=== PATIENT | female | born 1950 | race Caucasian/White ===

== ENCOUNTER 2025-08-25 12:05 | Outpatient (CLI) | payer MEDICARE, SELFPAY ==
[2025-08-25 12:32] VITALS: BP 141/86; PULSE 86; RESP 18; O2SAT 97
--- NOTE | 2025-08-25 13:35 | PM.PROC ---
Procedure Note Time Seen by Provider: 13:00 Date Seen: 08/25/25 Provider Contact Time: 13:45 Date of procedure: 08/25/25 Will [facility] bill your pro fee for this procedure?: Yes Procedure: CRYONEUROLYSIS TREATMENT REPORT REFERRING PROVIDER: Kishan Orozco TREATMENT PROVIDER: Myron Salcedo PREOPERATIVE DIAGNOSIS: Left knee osteoarthritis POSTOPERATIVE DIAGNOSIS: Left knee osteoarthritis? PROCEDURE: Cryoneurolysis of Multiple Sensory Nerves of the Knee ANESTHESIA: Local INDICATIONS: The patient is a very pleasant 74-year-old female patient with primary osteoarthritis involving the left knee who presents today for cryoneurolysis of multiple sensory nerves to the knee for severe knee pain.?Patient medical history was reviewed. The risks, benefits, treatment alternatives, and complications were discussed with the patient, including but not limited to bleeding, infection, nerve or tissue damage.?Informed consent was obtained. ? PRE-TREATMENT MOTOR ASSESSMENT/PAIN SCORE: Patient was able to demonstrate intact gross motor function with plantarflexion, dorsiflexion, adduction, abduction, hip flexion, and extension of the lower extremity.?Pre-treatment pain score of 0 out of 10 in the left knee. DESCRIPTION OF PROCEDURE: After obtaining informed consent, the patient was brought back to the treatment room and positioned supine on the table.?The left lower extremity was prepped with Chlorhexadine.?We began the procedure by performing our procedural pause.?Once this was completed and verified to be accurate, I began the procedure by identifying the nerves with the use of bedside ultrasound.?After the nerves were identified, the skin was marked and, using 1% lidocaine plain, the area of the nerves were anesthetized. ? After the anesthetic was administered, the Smart Tip 2190 cryoneurolysis needle was inserted into the treatment sites using ultrasound guidance.?Treatment was then initiated on the left lower extremity with the following nerves treated: Superior, superior medial, superior lateral, inferior medial genicular nerves and the infrapatellar branch of the saphenous nerve. At the termination of the treatment, the cryoneurolysis needle was removed with the patient's skin cleansed and Band-Aids and compression dressing applied. Patient tolerated the procedure without any incident or concern.? Patient was then instructed to stand, mobilize the joint, and was examined to ensure gross motor skills were intact. COMPLICATIONS: None POST-TREATMENT PAIN SCORE: 0 out of 10. Left knee DISPOSITION: Discharge instructions were given to the patient with education on the post-procedure expectations. Patient was instructed to call the Ortho clinic with any post-procedure concerns or questions.
== END 2025-08-25 13:42 | disposition home or self-care (01) ==
LOC: OP CLINIC 12:05
PROVIDERS: PCP Family Medicine; Visit Provider Nurse Anesthetist, Certified Registered
DX: M17.12 Unilateral primary osteoarthritis, left knee (principal)
CPT/HCPCS: 64640; 76942; C9809

== ENCOUNTER 2025-09-08 10:02 | Day surgery (SDC) | payer MEDICARE, SELFPAY ==
[2025-09-08] VITALS (22 sets, daily range): BP systolic 95–167; BP diastolic 56–87; PULSE 58–100; RESP 15–20; TEMP 35.3–36.9; O2SAT 90–98; BMI 36.9
[2025-09-08] MEDS: LACTATED RINGERS 1000 ML 1,000 ML 100 ML IV ×3 (10:40→16:11)
[2025-09-08] MEDS: SODIUM CHLORIDE 0.9 % (FLUSH) 10 ML SYRINGE IVF (10:41)
[2025-09-08] MEDS: ACETAMINOPHEN 500 MG TABLET 1000 MG PO ×2 (10:42→18:34)
[2025-09-08] MEDS: OXYCODONE (CR) 10 MG TAB.ER.12H PO (10:42)
--- NOTE | 2025-09-08 11:42 | W.PM.H&PU ---
History & Physical Update History & Physical Update H&P Reviewed and patient assessed: No changes noted
[2025-09-08] MEDS: MIDAZOLAM HCL 1 MG/ML inj IVP (12:14)
--- NOTE | 2025-09-08 12:26 | SUR.PREOP ---
TIME?OUT:?1214 PT/RN/MDA?VERIFICATION?OF?SURGICAL?SITE,?PROCEDURE,?AND?CONSENT OBTAINED?PRIOR?TO?INVASIVE?PROCEDURE.
[2025-09-08] MEDS: TRANEXAMIC ACID 100 MG/ML INJ 1000 MG IV (13:33)
--- NOTE | 2025-09-08 15:28 | P.ORPRC_ITS ---
Procedure Note Date of procedure: 09/08/25 Procedure: PREOPERATIVE DIAGNOSIS: 1. Left knee osteoarthritis, primary, severe POSTOPERATIVE DIAGNOSIS: 1. Left knee osteoarthritis, primary, severe PROCEDURE: 1. Left total knee arthroplasty - subvastus SURGEON: Kishan Orozco MD. DIE INSPECTOR: FARHAT Varela - Of note, a skilled sugar laboratory assistant was critical for this case to aid in patient positioning, tissue retraction, limb manipulation/positioning, and closure. ANESTHESIA: Spinal anesthetic EBL: 100 ml IMPLANTS: DePuy J&J all cemented TKA - Attune PS femur size 7 Size 5 tibia 10 mm poly spacer 38 mm patella TOURNIQUET: 30 minutes at 250 torr COMPLICATIONS: None evident INDICATIONS: The patient is a pleasant 74-year-old female who has experienced severe left knee pain and difficulty bearing weight. Workup included x-rays which revealed severe osteoarthrosis in the knee. Given the deformity, the dysfunction, and the pain, as well as the failure of nonoperative management, recommendation was made for surgery. FINDINGS: Full-thickness chondral loss diffusely throughout all 3 compartments of the knee. Significantly large osteophytosis diffusely throughout the knee all 3 compartments. Loose bodies in the posterior central part of the knee. Popliteal cyst encountered. Large effusion upon entering the joint. Virtually no trochlear sulcus/trochlear groove nor notch. The PCL was essentially hidden behind osteophyte. DESCRIPTION OF PROCEDURE: Following a thorough discussion of risks, benefits, and alternatives consent was obtained and the left knee was marked. The patient was brought to the operating room and placed supine on the operating table. Induction of anesthesia was undertaken. 2 g IV Ancef and 1 g tranexamic acid was administered within 1 hr of incision preoperatively. Proper time-out was performed identifying proper patient, site, procedure. The operative extremity was prepped and draped in the appropriate sterile fashion using ChloraPrep after the patient was positioned supine with all bony prominences well padded. A longitudinal, anterior, midline skin incision was made starting approximately 3cm proximal to the superior pole of the patella and advanced distal to the tibial tubercle. A subvastus approach was utilized. A medial subperiosteal sleeve was created with knife, veliz elevator and curved osteotome. The retropatellar fatpad was resected and the synovium in the suprapatellar pouch excised to visualize the anterior femoral cortex. Femoral preparation was performed via an intramedullary guide. Step drill allowed access into the femoral canal. The distal cutting guide was placed with 5? of valgus and 12 mm cut on the distal femur due to a 20?+ flexion contracture. Femur was sized using a posterior referencing guide in 3? of external rotation after cross referencing with trans-epicondylar axis and Marshall's line. This found have a best fit with the sizing noted above. The 4 in 1 cutting block was then placed, and the distal femur shaped accordingly. The box cut was then created and the trial implant inserted to confirm appropriate fit. We turned our attention to the proximal tibia. Extramedullary guide was utilized for cutting with the goal of being 90 degree cut from the mechanical axis of the tibia in the varus/valgus plane utilizing tibial crest as the primary alignment. Initially a 1 mm resection was performed from the medial tibial plateau. Ultimately, balancing was achieved in both flexion and extension in both varus and valgus. The knee was able to achieve full extension as well comfortably. The patella was initially measured and found have a thickness of 26 mm. It was resected back to approximately 15 mm. It was sized to be a best fit with as noted above. This was drilled, trial placed. All trials were placed and found to have an excellent stability and balance. At this stage, trial implants were removed, the knee was exsanguinated, tourniquet inflated, and the knee was thoroughly irrigated with normal saline, and the cement was mixed. After irrigation, the knee was thoroughly dried, and cement placed, with the real tibial and femoral implants placed along with the patella. Trial poly spacer was placed and confirmed to have excellent range of motion and full extension, and the real poly spacer opened and inserted. All extra cement was removed, and a 3 min Betadine soak performed. Finally, a final irrigation round with normal saline was performed. Closure performed with 0 PDS and #0 Stratafix for the quad tendon/retinaculum. 2-0 Vicryl/Stratafix for the subcutaneous and 4-0 Monocryl for subcuticular closure. Dressings were applied and the patient was awoken from anesthesia after the tourniquet deflated and transferred the PACU in stable condition. A skilled sugar laboratory assistant was critical for this case to aid in patient positioning, tissue retraction, bone exposure, limb manipulation/positioning, patient safety, and closure. PLAN: 1. Weight bear as tolerated operative extremity. 2. 23 hr perioperative antibiotics. 3. Ice. 4. PT/OT consults for ambulation assistance/mobility education. 5. Social work consult for discharge planning. 6. DVT prophylaxis with at SCDs and aspirin twice daily.
--- NOTE | 2025-09-08 15:34 | CRLHL7_ITS ---
For Patients: As a result of the Cures Act, medical imaging exams and procedure reports are released immediately into your electronic medical record. You may view this report before your referring provider. If you have questions, please contact your health care provider. Indication: Postop Technique: Two views left knee Findings/Impression: Hardware from a left total knee arthroplasty is in satisfactory position. Bone alignment is normal. No sign of acute fracture. Postop changes are within normal limits. Dictated by Cooper Gutiérrez MD @ 09/09/2025 8:10:15 AM (Electronically Signed)
--- NOTE | 2025-09-08 15:47 | W.PM.NB ---
Nerve Block Nerve Block Time Seen by Provider: 12:15 Date Seen: 09/08/25 Type of block requested by surgeon for post-operative analgesia: adductor canal Side: left Time out performed: Yes Verification of patient name: Yes Verification of date of : Yes Site marking: site marked Name of person performing procedure: Matias Continuous monitoring Was continuous monitoring of O2 sat, B/P, court recording monitor, recorded every 15 minutes?: Yes Procedure Checklist: sterile prep, needles and gloves Ultrasound guided. Images saved: Yes Medications given in 5ml increments after negative aspiration: Marcaine %: 0.25 mL: 15 Needle gauge: 20 Precedex (mcg): 25 Patient tolerated procedure well: Yes Block Charges Block Charge (with Pro Fee): Femoral Nerve Use of Ultrasound Machine for Block: Yes- US Guidance/pain block
--- NOTE | 2025-09-08 15:48 | P.ANES_ITS ---
Anesthesia Charges Start Date/Time Anesthesia Start Date: 09/08/25 Anesthesia Start Time: 13:08 Stop Date/Time Anesthesia Stop Date: 09/08/25 Anesthesia Stop Time: 15:55 Summary Extremes of Age - Over 70 or under 1: MDA Coding CPT Codes CPT Codes: ANESTH KNEE ARTHROPLASTY - 20417 ([id number]) P2 - PATIENT W/MILD SYST DISEASE, QK - LENS MOLDER 2-4 CNCRNT ANES PROC, QX - CAFE ASSISTANT SVC W/ MD MED DIRECTION Additional Codes: Summary - Extremes of Age - Over 70 or under 1: MDA ([id number])
--- NOTE | 2025-09-08 15:48 | W.PM.NB ---
Nerve Block Nerve Block Time Seen by Provider: 12:15 Date Seen: 09/08/25 Type of block requested by surgeon for post-operative analgesia: geniculars Side: left Time out performed: Yes Verification of patient name: Yes Verification of date of : Yes Site marking: site marked Name of person performing procedure: Matias Continuous monitoring Was continuous monitoring of O2 sat, B/P, hvac sales engineer, recorded every 15 minutes?: Yes Procedure Checklist: sterile prep, needles and gloves Ultrasound guided. Images saved: Yes Medications given in 5ml increments after negative aspiration: Marcaine %: 0.25 mL: 9 Needle gauge: 25 Patient tolerated procedure well: Yes Block Charges Block Charge (with Pro Fee): Genicular Nerve Block
--- NOTE | 2025-09-08 15:48 | W.ANESCHARGE ---
Anesthesia Charges Start Date/Time Anesthesia Start Date: 09/08/25 Anesthesia Start Time: 13:08 Stop Date/Time Anesthesia Stop Date: 09/08/25 Anesthesia Stop Time: 15:55 Summary Extremes of Age - Over 70 or under 1: MDA Coding CPT Codes CPT Codes: ANESTH KNEE ARTHROPLASTY - 74403 ([id number]) P2 - PATIENT W/MILD SYST DISEASE, QK - EVENT SALES REPRESENTATIVE 2-4 CNCRNT ANES PROC, QX - RUBBER EXTRUSION MACHINE OPERATOR SVC W/ MD MED DIRECTION Additional Codes: Summary - Extremes of Age - Over 70 or under 1: MDA ([id number])
--- NOTE | 2025-09-08 15:57 | P.ANES_ITS ---
Anesthesia Charges Start Date/Time Anesthesia Start Date: 09/08/25 Anesthesia Start Time: 13:08 Stop Date/Time Anesthesia Stop Date: 09/08/25 Anesthesia Stop Time: 15:55 Summary Extremes of Age - Over 70 or under 1: WILL CALL CLERK Coding CPT Codes CPT Codes: ANESTH KNEE ARTHROPLASTY - 55496 ([id number]) P2 - PATIENT W/MILD SYST DISEASE, QK - HEAD INSPECTOR 2-4 CNCRNT ANES PROC, QX - WILL CALL CLERK SVC W/ MD MED DIRECTION Additional Codes: Summary - Extremes of Age - Over 70 or under 1: WILL CALL CLERK ([id number])
--- NOTE | 2025-09-08 15:57 | W.ANESCHARGE ---
Anesthesia Charges Start Date/Time Anesthesia Start Date: 09/08/25 Anesthesia Start Time: 13:08 Stop Date/Time Anesthesia Stop Date: 09/08/25 Anesthesia Stop Time: 15:55 Summary Extremes of Age - Over 70 or under 1: JOB SETTER HONING Coding CPT Codes CPT Codes: ANESTH KNEE ARTHROPLASTY - 43975 ([id number]) P2 - PATIENT W/MILD SYST DISEASE, QK - COMMUNITY ASSISTANT 2-4 CNCRNT ANES PROC, QX - JOB SETTER HONING SVC W/ MD MED DIRECTION Additional Codes: Summary - Extremes of Age - Over 70 or under 1: JOB SETTER HONING ([id number])
--- NOTE | 2025-09-08 16:53 | PM.IMCN1 ---
Date of Consult Consult date: 09/08/25 Primary Care Provider: Milton Ramos MD Consult Narrative Narrative: HOSPITALIST CONSULT Procedure: Left total knee arthroplasty - subvastus SURGEON: Kishan Orozco MD. ANESTHESIA: Spinal anesthetic EBL: 100 ml The hospital medicine team was asked by the orthopedic surgery team to manage the patient's actively managed hypertension. There have been no perioperative complications. I have updated and reviewed the active medical problems, past medical history, past surgical history, social history, allergies and medications in our electronic EMR. This includes a cross reference to care everywhere in [facility] and with [facility] databases. PHYSICAL EXAM: CODE STATUS: FULL CODE CONSTITUTIONAL: Conversive, good historian. A/O. Knows setting and context. VITAL SIGNS: see record. HEENT: Normocephalic, atraumatic. PERRL, EOMI, conjunctivae pink, no scleral icterus. Ears and nose externally normal. Pharynx normal. NECK: No JVD. No carotid bruit, no thyromegaly, no adenopathy. CHEST: Clear to auscultation bilaterally HEART: S1 and S2 normal. ABDOMEN: Flat, soft, nontender. Normal bowel sounds. Moderately obese. EXTREMITIES: No edema. MUSCULOSKELETAL: Left knee surgical dressing is intact, dry, no seepage. NEURO: Cranial nerves intact. Mentation normal. Normal affect. SKIN: No rashes, petechiae, concerning changes PSYCHIATRIC: Mentation normal. INVESTIGATIONS: EMR Reviewed; Pre-OP Reviewed DISPOSITION: DVT: Agree with Ortho team decision GI: PO intake [facility] Medical History (Updated 09/08/25 @ 16:57 by Tiffany Jacques MD) Vertigo ?R42 - Dizziness and giddiness (ICD-10) Hyperlipidemia ?E78.5 - Hyperlipidemia, unspecified (ICD-10) Hypertension ?I10 - Essential (primary) hypertension (ICD-10) Surgical History (Updated 09/08/25 @ 16:58 by Tiffany Jacques MD) S/P total knee arthroplasty ?Z96.659 - Presence of unspecified artificial knee joint (ICD-10) History of appendectomy (1964) ?Z90.49 - Acquired absence of other specified parts of digestive tract (ICD-10) H/O left knee surgery (1968) ?Z98.890 - Other specified postprocedural states (ICD-10) Family History (Updated 07/23/25 @ 09:48 by Nathalia Mackey ~ [facility], [facility]) Brother Lewy body dementia Sister Lewy body dementia Other Breast cancer Diabetes High blood pressure High cholesterol Thyroid cancer Thyroid disease Social History (Updated 07/23/25 @ 09:47 by Nathalia Mackey ~ [facility], [facility]) Narrative: -Zhen (54 years ) What is your current living situation?: I presently have a place to live Problems where you live: no known problems Smoking Status: Never smoker Do you use any of these nicotine containing products: None Second hand tobacco smoke exposure: No How often do you have a drink containing alcohol: 4 or more times a week How many standard drinks containing alcohol do you have on a typical day: 1 or 2 How often do you have six or more drinks on one occasion: Never AUDIT-C Alcohol total score: 4 Non-prescribed substance use: denies use Caffeine: Yes (1c/day coffee) service: No Meds Home Medications and Allergies Home Medications ?Medication ?Instructions ?Recorded ?Confirmed ?Type atorvastatin 10 mg tablet 10 mg PO HS 07/19/25 09/08/25 History chlorthalidone 25 mg tablet 25 mg PO DAILY 07/19/25 09/08/25 History losartan 100 mg tablet 100 mg PO DAILY 07/19/25 09/08/25 History vitamins A,C,E-bcgd-otmfil 4,296 1 cap PO DAILY 07/23/25 09/08/25 History mcg-226 mg-90 mg capsule (PreserVision AREDS) acetaminophen 500 mg capsule 500 - 1,000 mg (1 - 2 x 500 mg) PO 09/08/25 Rx Q6H PRN #100 caps aspirin 81 mg tablet,delayed 81 mg PO BID #60 tabs 09/08/25 Rx release oxycodone 5 mg tablet 2.5 - 5 mg (0.5 - 1 x 5 mg) PO 09/08/25 Rx Q4-6H PRN pain #42 tabs sennosides 8.6 mg-docusate sodium 1 - 4 tab-cap (1 - 4 x 8.6-50 mg) 09/08/25 Rx 50 mg tablet (Senna-S) PO BID PRN constipation #60 tabs Allergies Allergy/AdvReac Type Severity Reaction Status Date / Time No Known Drug Allergies Allergy Verified 09/08/25 10:29 Exam Const: Vital Signs, click to edit/add: Vital Signs - 24 hr 09/08/25 11:15 09/08/25 12:14 09/08/25 12:20 Temperature 98.1 F Pulse Rate 74 61 62 Respiratory Rate 16 16 16 Blood Pressure 145/87 H 133/78 114/68 Pulse Oximetry 97 98 98 Oxygen Delivery Me thod Room Air Nasal Cannula Nasal Cannula Oxygen Flow Rate 2 2 09/08/25 12:30 09/08/25 12:45 09/08/25 15:54 Temperature 97.8 F Pulse Rate 61 61 71 Respiratory Rate 16 16 15 Blood Pressure 108/62 102/65 96/56 L Pulse Oximetry 98 98 91 Oxygen Delivery Me thod Nasal Cannula Nasal Cannula Room Air Oxygen Flow Rate 2 2 09/08/25 16:00 09/08/25 16:05 09/08/25 16:10 Temperature Pulse Rate 64 63 58 L Respiratory Rate 16 16 16 Blood Pressure 107/62 110/63 122/76 Pulse Oximetry 92 93 92 Oxygen Delivery Me thod Oxygen Flow Rate 09/08/25 16:15 09/08/25 16:20 09/08/25 16:30 Temperature 97.9 F 95.5 F L Pulse Rate 60 60 60 Respiratory Rate 16 16 20 Blood Pressure 124/73 128/80 125/62 Pulse Oximetry 94 93 96 Oxygen Delivery Me thod Room Air Room Air Oxygen Flow Rate Assessment and Plan Assessment and plan (1) S/P total knee arthroplasty: Problem comment: Dr. Leblanc; 09/08/25. Left. Hospital medicine team is happy to follow the patient through to discharge. We are expecting a routine postoperative course. I have reconciled home medications and completed our part of the discharge. -I will hold antihypertensives as indicated per our practice standard Status: Acute (2) Hypertension: Problem comment: Will hold the chlorthalidone. I have ordered the losartan for the morning with hold parameters. Status: Acute (3) Hyperlipidemia: Problem comment: Continue statin Status: Acute
--- NOTE | 2025-09-08 19:19 | PC.NURSE ---
Pt came to unit at 14:27, pleasant and cooperative with cares, Pain reported 2/10. Scheduled pain med given. pt reports no nausea, diet tolerated. Pt has not been up yet.
[2025-09-08] MEDS: CEFAZOLIN 2 GM in 0.9 % SODIUM CHLORIDE Mini-bag 100 ML IVPB (20:08)
[2025-09-08] MEDS: SENNOSIDES 1 TAB TABLET 2 TAB PO (22:15)
[2025-09-08] MEDS: ATORVASTATIN CALCIUM 10 MG TABLET PO (22:16)
[2025-09-08] MEDS: ASPIRIN 81 MG TABLET EC PO (22:16)
[2025-09-09] MEDS: ACETAMINOPHEN 500 MG TABLET 1000 MG PO ×2 (01:13→06:34)
[2025-09-09] MEDS: CEFAZOLIN 2 GM in 0.9 % SODIUM CHLORIDE Mini-bag 100 ML IVPB (03:27)
[2025-09-09 04:10] VITALS: BP 119/63; PULSE 73; RESP 16; TEMP 36.4; O2SAT 93
--- NOTE | 2025-09-09 05:24 | PC.NURSE ---
shift note: Pt is AOx4. Pt reports pain >4/10 , scheduled pain med given-see EMAR. Pt denies N/V. Tolerating regular diet. Pt up the chair & AMB to BR w/ SBA. Active ice applied, mild bruising on surgical area. Dressing C/D/I. Pt voided in BR. Pt able to make needs known & resting ; call light w/i reach.
[2025-09-09 07:00] VITALS: PULSE 84; RESP 18; O2SAT 98
[2025-09-09 08:00] VITALS: BP 116/52; PULSE 84; RESP 18; TEMP 35.8; O2SAT 98
[2025-09-09] MEDS: LOSARTAN POTASSIUM 50 MG TABLET 100 MG PO (08:21)
[2025-09-09] MEDS: SENNOSIDES 1 TAB TABLET 2 TAB PO (08:22)
[2025-09-09] MEDS: ASPIRIN 81 MG TABLET EC PO (08:22)
--- NOTE | 2025-09-09 09:49 | PM.ORPN ---
Subjective Subjective Date Seen: 09/09/25 Principal diagnosis: Status postop day 1 left total knee arthroplasty - cemented Interval history: Patient reports doing well. No acute events over night. Pain is minimal, 2/10. Pain managed with scheduled and PRN medications, ice. DVT prophylaxis: 81 mg aspirin by mouth twice daily, SCDs, walking. Denies fevers, chills, aches, N/V, CP, SOB/ARMIJO, or lightheadedness. Ortho Exam Narrative Exam Narrative: -Patient appears comfortable; no apparent acute distress -Alert and oriented times 3 -Operative knee moderately swollen; soft tissues supple; small area of ecchymosis medial knee; no erythematous streaking. Warmth appropriate -Surgical dressing clean, dry, intact; no drainage -Bilateral calves soft; no significant swelling, edema, tenderness, erythema, discoloration, warmth, or palpable cords -2+ DP/PT pulses, intact dermatomes and myotomes distally (5/5 strength) Const Vital Signs, click to edit/add: Vital Signs - 24 hr 09/08/25 11:15 09/08/25 12:14 09/08/25 12:20 Temperature 98.1 F Pulse Rate 74 61 62 Pulse Rate [Pulse Oximeter] Respiratory Rate 16 16 16 Blood Pressure 145/87 H 133/78 114/68 Blood Pressure [Right Arm] Pulse Oximetry 97 98 98 Oxygen Delivery Method Room Air Nasal Cannula Nasal Cannula Oxygen Flow Rate 2 2 09/08/25 12:30 09/08/25 12:45 09/08/25 15:54 Temperature 97.8 F Pulse Rate 61 61 71 Pulse Rate [Pulse Oximeter] Respiratory Rate 16 16 15 Blood Pressure 108/62 102/65 96/56 L Blood Pressure [Right Arm] Pulse Oximetry 98 98 91 Oxygen Delivery Method Nasal Cannula Nasal Cannula Room Air Oxygen Flow Rate 2 2 09/08/25 16:00 09/08/25 16:05 09/08/25 16:10 Temperature Pulse Rate 64 63 58 L Pulse Rate [Pulse Oximeter] Respiratory Rate 16 16 16 Blood Pressure 107/62 110/63 122/76 Blood Pressure [Right Arm] Pulse Oximetry 92 93 92 Oxygen Delivery Method Oxygen Flow Rate 09/08/25 16:15 09/08/25 16:20 09/08/25 16:30 Temperature 97.9 F 95.5 F L Pulse Rate 60 60 60 Pulse Rate [Pulse Oximeter] Respiratory Rate 16 16 20 Blood Pressure 124/73 128/80 125/62 Blood Pressure [Right Arm] Pulse Oximetry 94 93 96 Oxygen Delivery Method Room Air Room Air Oxygen Flow Rate 09/08/25 16:45 09/08/25 17:00 09/08/25 17:15 Temperature 95.5 F L 96.3 F L 96.3 F L Pulse Rate Pulse Rate [Pulse Oximeter] 60 63 63 Respiratory Rate 18 18 18 Blood Pressure Blood Pressure [Right Arm] 125/62 132/69 126/82 Pulse Oximetry 95 95 95 Oxygen Delivery Method Room Air Room Air Room Air Oxygen Flow Rate 2 2 09/08/25 17:30 09/08/25 18:00 09/08/25 18:38 Temperature 96.1 F L 96.1 F L 98.3 F Pulse Rate Pulse Rate [Pulse Oximeter] 100 98 88 Respiratory Rate 18 18 18 Blood Pressure Blood Pressure [Right Arm] 128/74 95/63 132/71 Pulse Oximetry 95 95 95 Oxygen Delivery Method Room Air Room Air Room Air Oxygen Flow Rate 09/08/25 19:30 09/08/25 21:00 09/08/25 22:00 Temperature 98.1 F 98.4 F Pulse Rate Pulse Rate [Pulse Oximeter] 97 92 Respiratory Rate 20 16 Blood Pressure Blood Pressure [Right Arm] 167/77 H 128/64 120/66 Pulse Oximetry 93 90 Oxygen Delivery Method Room Air Room Air Oxygen Flow Rate 09/08/25 23:00 09/08/25 23:00 09/08/25 23:00 Temperature Pulse Rate Pulse Rate [Pulse Oximeter] 92 Respiratory Rate 18 Blood Pressure Blood Pressure [Right Arm] Pulse Oximetry 92 93 Oxygen Delivery Method Nasal Cannula Oxygen Flow Rate 1 09/08/25 23:00 09/09/25 04:10 Temperature 97.6 F 97.5 F L Pulse Rate Pulse Rate [Pulse Oximeter] 79 73 Respiratory Rate 18 16 Blood Pressure Blood Pressure [Right Arm] 109/65 119/63 Pulse Oximetry 93 93 Oxygen Delivery Method Nasal Cannula Nasal Cannula Oxygen Flow Rate 1 1 Assessment and Plan Assessment and plan (1) S/P total knee arthroplasty: Problem details: Dr. Leblanc; 09/08/25. Left. Hospital medicine team is happy to follow the patient through to discharge. We are expecting a routine postoperative course. I have reconciled home medications and completed our part of the discharge. -I will hold antihypertensives as indicated per our practice standard Status: Acute (2) Hypertension: Problem details: Will hold the chlorthalidone. I have ordered the losartan for the morning with hold parameters. Status: Acute (3) Hyperlipidemia: Problem details: Continue statin Status: Acute Plan - Complete 23 hour perioperative antibiotics. - PT/OT consult for education and assistance. - Social work consult for discharge planning - Prescribed analgesics as needed - DVT prophylaxis: 81 mg aspirin by mouth twice daily, walking, and SCDs - Anticipation is for discharge to home with family/friends today 09/09/25 if the patient remains medically stable, pain is controlled, and they are safe with mobilization.
--- NOTE | 2025-09-09 11:36 | PC.SOCIAL ---
Discharge planning: heating and ventilating worker met with the pt and her family before discharge to check-in about and concerns the pt may have with discharging home. Pt states she has no concerns and feels good about returning home today. Social work to follow-up if needed.
--- NOTE | 2025-09-09 12:33 | PC.NURSE ---
Pt a/o x4, assist of w/walker. pt reported pain 2/10, prn pain med given as prescribed. pt given d/c education both written and verbally, family at bedside. IV removed Cath intact. Pt left facility via wheelchair accompanied by family
== END 2025-09-09 11:45 | disposition home or self-care (01) ==
LOC: OR 10:04 → MEDSURG 10:05
PROVIDERS: PCP Family Medicine; Visit Provider Orthopaedic Surgery Sports Medicine
PROC: (CPT 27447; principal; 2025-09-08 11:45)
DX: M17.12 Unilateral primary osteoarthritis, left knee (principal); G89.18 Other acute postprocedural pain; I10 Essential (primary) hypertension; E78.5 Hyperlipidemia, unspecified
CPT/HCPCS: 27447; 01402; 64447; 64454; 73560; 76942; 97110; 97116; 97161; 97165; 97530; 97535; 99100; A9270; C1776; J0665; J0690; J1100; J2250; J2405; J2704; J3010; J7120

== ENCOUNTER 2025-10-22 11:15 | Outpatient (RCR) | payer MEDICARE, SELFPAY ==
--- NOTE | 2025-09-20 12:48 | PT.OPDNX ---
PT [facility] Daily Note PT [facility] Daily Note Start: 09/10/25 10:23 Freq: Status: Active Protocol: Document 09/20/25 09:30 NLR (Rec: 09/20/25 12:47 NLR [id number]) E-signed By Carol Willis DPT PT OP Daily Progress Note Visit Information Note Type Daily Note Visit Number 4 Insurance Information Recert Due Date 12/09/25 Insurance Name Medicare B,Blue Cross/Blue Shield Medical Diagnosis Z96.652 Left knee artificial joint Treating Diagnosis M25.562 Left knee pain M25.662 Left knee stiffness M62.552 Left thigh weakness Referring MD Kishan Orozco MD Subjective Preferred Name ANNE-MARIE Subjective Anne-Marie arrives for PT follow up after left sided TKA on 09/08/[address] Orozco. She is accompanied by her Zhen. She is walking with a front wheeled walker. She continues to struggle lifting her leg against gravity to get into a supine position, and her biggest complaint is sacrum pain where she has a bruise . She sees Jamari tomorrow. Pain Comments -12/14 left knee, using oxycodone Date of Last 09/08/25 Physician Visit Date of Next 09/21/25 Physician Visit Date of Surgery (If 09/08/25 applicable) Precautions Weight Bearing Weight Bear as Tolerated Status Home Exercise Home Exercise Reviewed, modified and progressed HEP today. Comments Access Code: [email or web address] URL: [email or web address] Date: 09/13/2025 Prepared by: Carol Willis Exercises - Supine Single Leg Ankle Pumps - 3-5 x daily - 7 x weekly - 10 reps - edema management exercise type - Seated Ankle Pumps - 3-5 x daily - 7 x weekly - 10 reps - edema management exercise type - Squish the Banana Quad Set - 3 x daily - 7 x weekly - 10 reps - 5 seconds hold - strength exercise type - Supine Short Arc Quad - 3 x daily - 7 x weekly - 10 reps - 5 seconds hold - strength exercise type - Active Straight Leg Raise with Quad Set - 3 x daily - 7 x weekly - 10 reps - 2-3 seconds hold - strength exercise type - Supine Heel Slide - 3 x daily - 7 x weekly - 10 reps - range of motion exercise type - Supine Isometric Hamstring Set - 3 x daily - 7 x weekly - 10 reps - 5 seconds hold - strength exercise type - Seated Long Arc Quad - 3 x daily - 7 x weekly - 10 reps - 5 seconds hold - range of motion/strength exercise type - Seated Knee Flexion Stretch - 3 x daily - 7 x weekly - 1-2 reps - 10-30 seconds hold - range of motion/ stretch exercise type - Seated Passive Knee Extension - 3 x daily - 7 x weekly - 1-2 reps - 1-5 minutes hold - range of motion /stretch exercise type - Sitting Knee Extension with Resistance - 3 x daily - 7 x weekly - 2 sets - 10 reps - 3-5 second hold - strength exercise type - Seated Hamstring Curl with Anchored Resistance - 3 x daily - 7 x weekly - 2 sets - 10 reps - 2-3 seconds hold - strength exercise type - Seated Knee Lifts with Resistance - 3 x daily - 7 x weekly - 2 sets - 10 reps - 2-3 second hold - strength exercise type - Seated Hip Abduction with Resistance - 3 x daily - 7 x weekly - 2 sets - 10 reps - 2-3 seconds hold - strength exercise type Patient Education - Safe Practices For Preventing Falls - Going Up and Down Stairs With Two Rails After Surgery - Walker WBAT - Ice Objective Other/Pertinent ROM: RIGHT knee 0-115; LEFT knee 25-74 (evaluation) Objective STRENGTH: RIGHT thigh 4+/5; LEFT thigh 3/5 POSTURE: Forward flexed PALPATION: Patient exhibits tenderness to palpation at medial knee, lateral knee EDEMA: +3 non pitting L knee and surrounding tissue - she has a history of B LE edema for which she wears compression socks FUNCTIONAL: Sit to/from stand modified independent; sit to/from supine minimal assist; bed mobility moderate assist; self-dressing independent, except sock and shoe GAIT: modified independent with FWW, slow pace FOOTWEAR: Patient arrives wearing athletic shoes with velcro closures EQUIPMENT: Patient has FWW, SPC Patient Instructed Yes in Risks/Benefits Therapeutic Exercise Therapeutic Exercise 30 Minutes (minutes) Therapeutic Exercise - NuStep seat 10, level 3 5 minutes : To Restore - Recumbent bike seat 6, no resistance - unable to make Functional Status full revolutions but getting close - Prolonged knee flexion stretch on bottom 2 steps - Sitting Knee Extension with Resistance (red band) - Seated Hamstring Curl with Anchored Resistance (red band) - Seated Knee Lifts with Resistance (red band) - Seated Hip Abduction with Resistance (red band) - Seated Knee Flexion Stretch - Seated Passive Knee Extension Manual Therapy Techniques Manual Therapy 15 Minutes (minutes) Manual Therapy - Supine manual STM/MFR for edema reduction at left Techniques calf, knee and thigh. Gentle TrP releases at vastus lateralis, rectus femoris/vastus intermedius, vastus medialis, adductor meron, biceps femoris muscle group( s) with mild release noted. Patient tolerated well and instructed in post mobilization after care. - Kinesiotape applied to left knee using two strips of Rock Standard (#2) in an edema squid pattern for an edema reduction correction. Patient instructed in risks and benefits and proper care of KT tape; questions were answered to the best of my ability. Gait & Stair Training Gait & Stair Walker elevated one notch to improve upright posture. Training Comments She needs a lot of VCs not to pull shoulders upward. Treatment Minutes Timed Code Treatment 45 Minutes Total Treatment Time 45 Billing Units Manual Therapy Units 1 Therapeutic Exercise 2 Units Assessment/Impression Assessment/ Anne-Marie states she feels she is doing well except her Impression sacrum hurts from laying on her back. Recommended she try lying on her R side with pillows between her knees and showed her and daughter what skin areas to watch for potential breakdown. She still struggles getting into and out of supine, but this is improving slowly. She needs minimal assist of one to get into and out of the bed. Range of motion improving quite slowly. Edema in L leg is still significant, using KT tape edema reduction. Skilled intervention remains appropriate, continue POC. Primary Functional Difficulty walking without gait aid, difficulty doing Limitations stairs, difficulty getting into and out of bed/lifting leg independently. Plan of Care Physical Therapy 1. Patient will be independent with home exercise Goals program as instructed, modified and progressed by physical therapist in order to be independently and actively participating in their rehabilitation and return to prior level of function. Goal to be achieved by 12/03/2025. 2. Patient will demonstrate ability to walk for 30 minutes(s) without significant increase in pain greater than 2/10 to allow patient to be able to safely and independently return to participation in desired level of function with daily activities such walking for exercise without pain or difficulty. Goal to be achieved by 12/03/2025. 3. Patient will ascend/descend 2 full flight(s) of stairs with [id number] pattern without significant increase in difficulty or pain over 12/14 allowing for safe and independent mobility through their home/work environment. Goal to be achieved by 12/03/2025. Daily Plan of Care Continue per POC Daily Plan of Care L TKA Dr. Orozco 09/08/25 Comments L knee ROM 2-90 (up from 5-90) Patient using [employer] on off PT days Equipment Information Equipment FWW, toilet riser, SPC, shower chair Information Discharge Note Date of First Visit 09/10/25 for Therapy Initial Primary Difficulty walking without gait aid, difficulty doing Functional stairs, difficulty getting into and out of bed/lifting Limitations leg indepenedently.
--- NOTE | 2025-10-22 11:48 | PT.OPDNX ---
PT [facility] Daily Note PT [facility] Daily Note Start: 09/10/25 10:23 Freq: Status: Active Protocol: Document 10/22/25 09:15 NLR (Rec: 10/22/25 11:47 NLR [id number]) E-signed By Carol Willis DPT PT OP Daily Progress Note Visit Information Note Type Discharge Note Visit Number 13 Insurance Information Recert Due Date 12/09/25 Insurance Name Medicare B,Blue Cross/Blue Shield Medical Diagnosis Z96.652 Left knee artificial joint Treating Diagnosis M25.562 Left knee pain M25.662 Left knee stiffness M62.552 Left thigh weakness Referring MD Kishan Orozco MD Subjective Preferred Name ANNE-MARIE Subjective Anne-Marie arrives for PT follow up stating she just saw Dr. Orozco and he is pleased with her progress, she sees him again for final visit in 6 months. She is walking with a SPC today, but completes therapy without gait aid. She states she feels ready to do her HEP on her own at home. Pain Comments -12/14 left knee Date of Last 10/22/25 Physician Visit Date of Next 03/11/26 Physician Visit Date of Surgery (If 09/08/25 applicable) Precautions Weight Bearing Weight Bear as Tolerated Status Home Exercise Home Exercise Reviewed, modified and progressed HEP today. Comments Access Code: [email or web address] URL: [email or web address] Date: 10/22/2025 Prepared by: Carol Willis Exercises - Seated Ankle Pumps - 3-5 x daily - 7 x weekly - 10 reps - edema management exercise type - Active Straight Leg Raise with Quad Set - 3 x daily - 7 x weekly - 10 reps - 2-3 seconds hold - strength exercise type - Seated Knee Flexion Stretch - 3 x daily - 7 x weekly - 1-2 reps - 10-30 seconds hold - range of motion/ stretch exercise type - Seated Passive Knee Extension - 3 x daily - 7 x weekly - 1-2 reps - 1-5 minutes hold - range of motion /stretch exercise type - Sitting Knee Extension with Resistance - 3 x daily - 7 x weekly - 2 sets - 10 reps - 3-5 second hold - strength exercise type - Seated Hamstring Curl with Anchored Resistance - 3 x daily - 7 x weekly - 2 sets - 10 reps - 2-3 seconds hold - strength exercise type - Seated Knee Lifts with Resistance - 3 x daily - 7 x weekly - 2 sets - 10 reps - 2-3 second hold - strength exercise type - Supported Controlled Step Up - 3 x daily - 7 x weekly - 2 sets - 10 reps - 2-3 seconds hold - strength exercise type - Supported Controlled Forward Step Down - 3 x daily - 5-7 x weekly - 2 sets - 10 reps - 2-3 seconds hold - strength exercise type - Alternating Knee Flexion/Extension Stretch on Stairs - 3 x daily - 7 x weekly - 10-20 reps - 5-10 second hold - range of motion/stretch exercise type Objective Other/Pertinent ROM: RIGHT knee 0-115; LEFT knee 25-74 (evaluation) Objective STRENGTH: RIGHT thigh 4+/5; LEFT thigh 3/5 POSTURE: Forward flexed PALPATION: Patient exhibits tenderness to palpation at medial knee, lateral knee EDEMA: +3 non pitting L knee and surrounding tissue - she has a history of B LE edema for which she wears compression socks FUNCTIONAL: Sit to/from stand modified independent; sit to/from supine minimal assist; bed mobility moderate assist; self-dressing independent, except sock and shoe GAIT: modified independent with FWW, slow pace FOOTWEAR: Patient arrives wearing athletic shoes with velcro closures EQUIPMENT: Patient has FWW, SPC Patient Instructed Yes in Risks/Benefits Therapeutic Exercise Therapeutic Exercise 40 Minutes (minutes) Therapeutic Exercise - Nustep level 5, seat 11, 5 min : To Restore - Recumbent bike seat 5, level 3 x 5 min-full Functional Status revolutions forward and backward with a lot of encouragement forward - Cybex B LE press 130# B LE -100# L LE - Cybex B quad extension 20# - Cybex B ham curls 40# - Controlled step ups 6 step - Controlled step downs 4 step - Stair knee flex/ext Neuromuscular Re-Ed Neuromuscular - Kinesiotape applied to left knee using one strips of Reeducation Comments Rock Harry (#2) in an edema squid pattern for an edema reduction correction. Patient instructed in risks and benefits and proper care of KT tape; questions were answered to the best of my ability. ( not done today) Treatment Minutes Timed Code Treatment 40 Minutes Total Treatment Time 40 Billing Units Therapeutic Exercise 3 Units Assessment/Impression Assessment/ Anne-Marie saw Dr. Orozco this morning who reported he Impression was pleased with her progress. She has two remaining PT visits, but she states she would like to be done and feels ready. The only difficulty she still has is full flexion of the knee, she is 0-100 I and 0-112 with assistance. She has full extension. On the recumbent bike she struggles to make full revolutions due to stiffness but when distracted she is able to achieve. She tolerates step ups and step downs without issue but needs some encouragement. Overall she is doing very well and will plan to DC today with HEP. She verbalizes understanding that continuing the HEP is very important for continued strengthening and knee flexion. Primary Functional DC with HEP Limitations Plan of Care Physical Therapy 1. Patient will be independent with home exercise Goals program as instructed, modified and progressed by physical therapist in order to be independently and actively participating in their rehabilitation and return to prior level of function. Goal to be achieved by 12/03/2025. ACHIEVED 2. Patient will demonstrate ability to walk for 30 minutes(s) without significant increase in pain greater than 2/10 to allow patient to be able to safely and independently return to participation in desired level of function with daily activities such walking for exercise without pain or difficulty. Goal to be achieved by 12/03/2025. ACHIEVED 3. Patient will ascend/descend 2 full flight(s) of stairs with [id number] pattern without significant increase in difficulty or pain over 2/10 allowing for safe and independent mobility through their home/work environment. Goal to be achieved by 12/03/2025. ACHIEVED Daily Plan of Care Discharge Daily Plan of Care L TKA Dr. Orozco 09/08/25 Comments L knee ROM 0-112 Patient using [employer] on off PT days DC with HEP Equipment Information Equipment FWW, toilet riser, SPC, shower chair Information Discharge Note Discharge Summary Anne-Marie saw Dr. Orozco this morning who reported he was pleased with her progress. She has two remaining PT visits, but she states she would like to be done and feels ready. The only difficulty she still has is full flexion of the knee, she is 0-100 I and 0-112 with assistance. She has full extension. On the recumbent bike she struggles to make full revolutions due to stiffness but when distracted she is able to achieve. She tolerates step ups and step downs without issue but needs some encouragement. Overall she is doing very well and will plan to DC today with HEP. She verbalizes understanding that continuing the HEP is very important for continued strengthening and knee flexion. Date of First Visit 09/10/25 for Therapy Date of Last Visit 10/22/25 for Therapy Initial Primary Difficulty walking without gait aid, difficulty doing Functional stairs, difficulty getting into and out of bed/lifting Limitations leg indepenedently. Recommendations/ Met All Therapy Goals,Progress Cont w/HEP Reason for Discharge Discharge DC with HEP Instructions Thank You For This Thank you for this physical therapy referral. Discharge Referral is attached. Signature not required. Contact us if you have any questions or concerns by phone at [phone] or by fax at [phone] attn: Carol Carlson, PT, DPT.
== END 2025-11-02 17:25 | disposition home or self-care (01) ==
PROVIDERS: PCP Family Medicine; Visit Provider Orthopaedic Surgery Sports Medicine
DX: Z47.1 Aftercare following joint replacement surgery (principal); Z96.652 Presence of left artificial knee joint; Z51.89 Encounter for other specified aftercare
CPT/HCPCS: 97110; 97112; 97116; 97140; 97161